=== PATIENT | female | born 1950 | race Caucasian/White ===

== ENCOUNTER 2018-06-07 09:01 | Emergency (ER) | payer BC ==
[2018-06-07 09:25] VITALS: BP 142/82
[2018-06-07] MEDS ORDERED: Ipratropium 0.5MG/2.5ML NEB* 0.5 MG/2.5 ML NEB.SOLN INH ONE (09:39)
[2018-06-07] MEDS ORDERED: Albuterol 2.5 MG/3 ML NEB.SOL* (0.083%) INH ONE (09:39)
--- NOTE | 2018-06-07 10:36 | RAD ---
INDICATION: Cough right lower lobe rales. COMPARISON: Comparison is made with a prior chest x-ray study from May 23, 2016. TECHNIQUE: Dual-energy PA and lateral views of the chest were obtained. FINDINGS: The heart is within normal limits in size. Mediastinal and hilar contours appear within normal limits. The lungs are underinflated. There is a small right basilar infiltrate suggestive of atelectasis. No pleural effusion is seen. IMPRESSION: LOW LUNG VOLUMES, SMALL RIGHT BASILAR INFILTRATE SUGGESTIVE OF ATELECTASIS.
--- NOTE | 2018-06-07 10:41 | UC ---
Respiratory Complaint HPI - HPI Summary HPI Summary: The patient is a 68-year-old female with a three-day history of cough and wheezing. She has had no fever or chills. She has had a history of asthma bronchitis and pneumonia. She has some chest tightness. She has no chest pain or shortness of breath. She is on methotrexate for psoriatic arthritis. - History of Current Complaint Chief Complaint: UCRespiratory Stated Complaint: FATIGUE,COUGH,ST Time Seen by Provider: 06/07/18 09:35 Hx Obtained From: Patient Hx Last Menstrual Period: 1984 Onset/Duration: Gradual Onset, Lasting Days Timing: Constant Severity Initially: Mild Severity Currently: Moderate Pain Intensity: 0 Pain Scale Used: 0-10 Numeric Character: Cough: Nonproductive Aggravating Factors: Exertion, Deep Breaths Alleviating Factors: Nothing Associated Signs And Symptoms: Positive: Wheezing Related History: Similar Episode/Dx as: - bronchitis - Allergies/Home Medications Allergies/Adverse Reactions: Allergies Allergy/AdvReac Type Severity Reaction Status Date / Time Penicillins Allergy Vomiting Verified 06/07/18 09:17 seasonal Allergy Runny Nose Uncoded 10/23/16 10:53 Home Medications: Home Medications Adalimumab (NF) [Humira Pen (NF)] 40 mg SUBCUT WEEKLY 06/07/18 [History Confirmed 06/07/18] Atorvastatin* [Lipitor*] 10 mg PO DAILY 06/07/18 [History Confirmed 06/07/18] Losartan TAB* [Cozaar TAB*] 25 mg PO DAILY 06/07/18 [History Confirmed 06/07/18] Sertraline* [Zoloft*] 25 mg PO DAILY 06/07/18 [History Confirmed 06/07/18] PMH/Surg Hx/FS Hx/Imm Hx Previously Healthy: Yes - proriatic arthritis Endocrine History: Dyslipidemia Cardiovascular History: Hypertension Respiratory History: Asthma, Bronchitis, Pneumonia - Surgical History Surgical History: Yes Surgery Procedure, Year, and Place: bladder implant. patsy. 2 . 3 breast biopsy- benign. tonsilectomy. bladder lifting. hysterectomy. CHOLECYSTECTOMY--2011. trigger finger left 3rd finger. CARDIAC CATH, 2016- [facility]. back surgery - Family History Known Family History: Positive: Unknown, Cardiac Disease, Other - mom: lung cancer, renal cell carcinoma - Social History Alcohol Use: Occasionally Substance Use Type: None Smoking Status (MU): Never Smoked Tobacco - Immunization History Most Recent Influenza Vaccination: 08/2015 Review of Systems Constitutional: Fatigue Skin: Negative Eyes: Negative ENT: Negative Respiratory: Cough Cardiovascular: Negative Gastrointestinal: Negative Genitourinary: Negative Motor: Negative Neurovascular: Negative Musculoskeletal: Negative Neurological: Negative Psychological: Negative Is Patient Immunocompromised?: No All Other Systems Reviewed And Are Negative: Yes Physical Exam Triage Information Reviewed: Yes Appearance: Well-Appearing, No Pain Distress, Well-Nourished Vital Signs: Initial Vital Signs Temp 97.9 F 06/07/18 09:22 Pulse 81 06/07/18 09:22 Resp 17 06/07/18 09:22 BP 142/82 06/07/18 09:22 Pulse Ox 97 06/07/18 09:22 Eye Exam: Normal Eyes: Positive: Conjunctiva Clear ENT: Positive: Normal ENT inspection Respiratory: Positive: No respiratory distress, No accessory muscle use, Wheezing Cardiovascular: Positive: RRR, No Murmur Musculoskeletal: Positive: ROM Intact, No Edema Neurological: Positive: Alert Psychological Exam: Normal Skin Exam: Normal UC Diagnostic Evaluation - Laboratory O2 Sat by Pulse Oximetry: 97 - normal/not hypoxic - Radiology Xray Interpretation: Positive (See Comments) - LOW LUNG VOLUMES, SMALL RIGHT BASILAR INFILTRATE SUGGESTIVE OF ATELECTASIS Respiratory Course/Dx - Differential Dx/Diagnosis Provider Diagnoses: acute bronchitis Discharge - Sign-Out/Discharge Documenting (check all that apply): Discharge/Admit/Transfer - Discharge Plan Condition: Stable Disposition: HOME Prescriptions: Azithromycin TAB* [Zithromax TAB*] 250 mg PO DAILY #6 tab predniSONE [Deltasone 20 MG TAB] 40 mg PO DAILY #10 tab Patient Education Materials: Acute Bronchitis (ED), Atelectasis (ED) Referrals: Karyn Byrnes MD [Primary Care Provider] - 4 Days (if not better) Additional Instructions: use inhaler as directed - Billing Disposition and Condition Condition: STABLE Disposition: Home
[2018-06-07] MEDS ORDERED: Albuterol HFA INHALER* 8 gm MDI INH ONE (10:42)
[2018-06-07] MEDS ORDERED: predniSONE TAB* 20 MG PO ONE (10:43)
== END 2018-06-07 11:06 | disposition home or self-care (01) ==
LOC: UCCORT 09:01
DX: J20.9 Acute bronchitis, unspecified (principal); Z88.1 Allergy status to other antibiotic agents; I10 Essential (primary) hypertension
CPT/HCPCS: 71046; 99213; A9270-GY; G0463; J7512

== ENCOUNTER 2018-06-26 10:43 | Emergency (ER) | payer BC ==
[2018-06-26 11:05] VITALS: BP 126/79
--- NOTE | 2018-06-26 11:19 | UC ---
Complaint Female HPI - HPI Summary HPI Summary: 68 yo female with a 2 day hx of dysuria/urgency and frequency hx of UTIs no hx renal impairment no n/v/d\ no f/c The patient states she has psoriatic arthritis. She takes Bactrim for her UTIs. - History Of Current Complaint Chief Complaint: UCGU Stated Complaint: URINARY COMPLAINT Time Seen by Provider: 06/26/18 11:09 Hx Last Menstrual Period: 1984 Onset/Duration: Gradual Onset, Lasting Days Timing: Intermittent, Lasting Seconds Severity Initially: Moderate Severity Currently: None Pain Intensity: 0 Pain Scale Used: 0-10 Numeric Character: Burning Aggravating Factor(s): Urination Related Hx: Similar Episode/Dx as: - uti - Risk Factors Ectopic Risk Factor: Negative - Allergies/Home Medications Allergies/Adverse Reactions: Allergies Allergy/AdvReac Type Severity Reaction Status Date / Time Penicillins Allergy Vomiting Verified 06/26/18 11:01 seasonal Allergy Runny Nose Uncoded 06/26/18 11:01 Home Medications: Home Medications Nizatidine 150 mg PO BID PRN 06/26/18 [History Confirmed 06/26/18] Phenazopyridine TAB* [Pyridium 100 mg TAB*] 195 mg PO TID PRN 06/26/18 [History Confirmed 06/26/18] PMH/Surg Hx/FS Hx/Imm Hx Previously Healthy: Yes - Psoriatic arthritis Endocrine History: Dyslipidemia - Surgical History Surgical History: Yes Surgery Procedure, Year, and Place: bladder implant. patsy. 2 . 3 breast biopsy- benign. tonsilectomy. bladder lifting. hysterectomy. CHOLECYSTECTOMY--2011. trigger finger left 3rd finger. CARDIAC CATH, 2016- [facility]. back surgery - Family History Known Family History: Positive: Cardiac Disease, Other - mom: lung cancer, renal cell carcinoma - Social History Alcohol Use: Occasionally Substance Use Type: None Smoking Status (MU): Never Smoked Tobacco - Immunization History Most Recent Influenza Vaccination: 08/2015 Review of Systems Constitutional: Negative Skin: Negative Eyes: Negative ENT: Negative Respiratory: Negative Cardiovascular: Negative Gastrointestinal: Negative Genitourinary: Dysuria, Frequency, Urgency Motor: Negative Neurovascular: Negative Musculoskeletal: Negative Neurological: Negative Psychological: Negative Is Patient Immunocompromised?: No All Other Systems Reviewed And Are Negative: Yes Physical Exam Triage Information Reviewed: Yes Appearance: Well-Appearing, No Pain Distress, Well-Nourished Vital Signs: Initial Vital Signs Temp 98.1 F 06/26/18 10:58 Pulse 92 06/26/18 10:58 Resp 16 06/26/18 10:58 BP 126/79 06/26/18 10:58 Pulse Ox 96 06/26/18 10:58 Vital Signs Reviewed: Yes Eyes: Positive: Conjunctiva Clear ENT: Positive: Normal ENT inspection. Negative: Nasal congestion, Nasal drainage, Trismus, Muffled voice, Dental tenderness, Uvula midline Neck: Positive: Supple, Nontender Respiratory: Positive: Lungs clear, Normal breath sounds, No respiratory distress, No accessory muscle use Cardiovascular: Positive: RRR, No Murmur Abdomen Description: Positive: Nontender. Negative: CVA Tenderness (R), CVA Tenderness (L) Neurological: Positive: Alert Psychological Exam: Normal Skin Exam: Normal Complaint Female Dx - Differential Dx/Diagnosis Provider Diagnoses: dysuria. suspect UTI Discharge - Sign-Out/Discharge Documenting (check all that apply): Patient Departure - Discharge Plan Condition: Stable Disposition: HOME Prescriptions: Sulfamethox/Trimethoprim DS* [Bactrim DS 800/160 TAB*] 1 tab PO BID #14 tab Patient Education Materials: Dysuria (ED) Referrals: Karyn Byrnes MD [Primary Care Provider] - 3 Days (if not better) Additional Instructions: I suspect you have a UTI urine culture is pending
== END 2018-06-26 11:28 | disposition home or self-care (01) ==
LOC: UCCORT 10:43
DX: Z88.8 Allergy status to other drugs, medicaments and biological substances (principal); Z88.6 Allergy status to analgesic agent; R30.0 Dysuria
CPT/HCPCS: 87077; 87086; 87186; 99212; G0463

== ENCOUNTER 2019-02-10 09:05 | Emergency (ER) | payer BC ==
[2019-02-10 10:38] VITALS: BP 147/87
--- NOTE | 2019-02-10 11:05 | UC ---
Complaint Female HPI - HPI Summary HPI Summary: The patient has had burning on urination, frequency and urgency over the past 1- 2 days. She denies any fever or chills however she does have some low back pain. She has a history of frequent urinary tract infections the most recent being approximately one month ago. She is allergic to penicillin which results in facial swelling. She states in the past she has taken Bactrim however has always had to return for change to Cipro. Not sexually active and has had a hysterectomy in the past. - History Of Current Complaint Chief Complaint: UCGU Stated Complaint: URINARY COMPLAINT Time Seen by Provider: 02/10/19 10:35 Hx Obtained From: Patient Hx Last Menstrual Period: 1984 ?: No Onset/Duration: Gradual Onset Timing: Constant Severity Initially: Moderate Severity Currently: Moderate Pain Intensity: 3 Character: Burning Aggravating Factor(s): Urination Alleviating Factor(s): Nothing, Other - Patient took Azo without improvement Associated Signs And Symptoms: Positive: Back Pain, Vomiting(# Of Episodes =) - Patient vomited one time yesterday morning but has not vomited since then. - Allergies/Home Medications Allergies/Adverse Reactions: Allergies Allergy/AdvReac Type Severity Reaction Status Date / Time Penicillins Allergy Vomiting Verified 02/10/19 10:35 seasonal Allergy Runny Nose Uncoded 02/10/19 10:35 PMH/Surg Hx/FS Hx/Imm Hx Previously Healthy: Yes GI/ History: Other - History of urinary tract infections for which she sees a urologist. Her most recent was one month ago. She denies any other chronic illnesses. - Surgical History Surgical History: Yes Surgery Procedure, Year, and Place: bladder implant. patsy. 2 . 3 breast biopsy- benign. tonsilectomy. bladder lifting. hysterectomy. trigger finger left 3rd finger. CARDIAC CATH, 2016- [facility]. back surgery - Family History Known Family History: Positive: Unknown, Cardiac Disease, Other - mom: lung cancer, renal cell carcinoma - Social History Occupation: Retired Alcohol Use: Occasionally Substance Use Type: None Smoking Status (MU): Never Smoked Tobacco - Immunization History Most Recent Influenza Vaccination: 08/2015 Review of Systems All Other Systems Reviewed And Are Negative: Yes Constitutional: Positive: Negative Skin: Positive: Negative Eyes: Positive: Negative ENT: Positive: Negative Respiratory: Positive: Negative Cardiovascular: Positive: Negative Gastrointestinal: Positive: Negative Genitourinary: Positive: Dysuria, Frequency, Urgency. Negative: Vaginal/Penile Burning, Vaginal/Penile Itching, Vaginal/Penile Discharge Motor: Positive: Negative Neurovascular: Positive: Negative Musculoskeletal: Positive: Negative Neurological: Positive: Negative Psychological: Positive: Negative Is Patient Immunocompromised?: No Physical Exam Triage Information Reviewed: Yes Appearance: Well-Appearing, No Pain Distress, Well-Nourished Vital Signs: Initial Vital Signs Temp 97.8 F 02/10/19 10:33 Pulse 99 02/10/19 10:33 Resp 18 02/10/19 10:33 BP 147/87 02/10/19 10:33 Pulse Ox 96 02/10/19 10:33 Vital Signs Reviewed: Yes Eye Exam: Normal Neck exam: Normal Respiratory Exam: Normal Cardiovascular Exam: Normal Abdominal Exam: Normal Bowel Sounds: Positive: Present Musculoskeletal Exam: Normal Neurological Exam: Normal Psychological Exam: Normal Skin Exam: Normal Complaint Female Dx - Course Course Of Treatment: Assessment comfortable here. She is going to follow up with her urologist following treatment to make sure the urinary tract infection has cleared. I'm reluctant to give her cephalexin because of her penicillin allergy therefore I'm going to treat her with Cipro since the last time she had a urinary tract infection 1 month ago Bactrim did not work well. - Differential Dx/Diagnosis Differential Diagnosis/HQI/PQRI: Urinary Tract Infection Provider Diagnosis: UTI (urinary tract infection) Discharge - Sign-Out/Discharge Documenting (check all that apply): Patient Departure All imaging exams completed and their final reports reviewed: No Studies - Discharge Plan Condition: Fair Disposition: HOME Prescriptions: Ciprofloxacin TAB* [Cipro 500 MG TAB*] 500 mg PO BID 7 Days #14 tab Phenazopyridine TAB* [Pyridium 100 mg TAB*] 100 mg PO TID 2 Days #6 tab Patient Education Materials: Urinary Tract Infection in Women (DC) Referrals: Karyn Byrnes MD [Primary Care Provider] - Additional Instructions: Increase fluids. Avoid soaps in the genital area, perfume toilet paper. Definite follow-up in the emergency room if you develop any fever, chills, vomiting, increased back pain. Follow-up with your urologist after the medication is completed to make sure the urinary tract infection has cleared - Billing Disposition and Condition Condition: FAIR Disposition: Home
== END 2019-02-10 11:08 | disposition home or self-care (01) ==
LOC: UCCORT 09:05
DX: N39.0 Urinary tract infection, site not specified (principal); Z88.0 Allergy status to penicillin; Z91.09 Other allergy status, other than to drugs and biological substances
CPT/HCPCS: 87077; 87086; 87186; 99212; G0463

== ENCOUNTER 2019-10-29 12:36 | Emergency (ER) | payer BC ==
[2019-10-29 13:47] VITALS: BP 142/74
--- NOTE | 2019-10-29 14:28 | UC ---
UC General HPI - HPI Summary HPI Summary: Patient comes in with a chief complaint of fatigue, nausea and shortness of breath. Patient reports she's been short of breath for a long time and chest x- ray 2 months ago from her doctor and she was told that was normal. Had a history of asthma in the past used albuterol inhalers but she no longer uses those. No chest congestion no fevers no chills. No chest pain no pedal edema. After she ate she gets nauseous. Reports normal bowels with no blood in her stools. She is on nizatidine. Nauseous been the worse over the past one week. She is also been fatigued for at least 3 weeks. Reports she had some blood work with her primary care doctor 2 weeks ago for general checkup and she was told her results were normal. She's also been having a frontal headache. - History of Current Complaint Chief Complaint: UCGeneralIllness Stated Complaint: GENERAL MALAISE Time Seen by Provider: 10/29/19 14:07 Hx Last Menstrual Period: 1984 Pain Intensity: 0 - Allergy/Home Medications Allergies/Adverse Reactions: Allergies Allergy/AdvReac Type Severity Reaction Status Date / Time Penicillins Allergy Vomiting Verified 10/29/19 13:43 seasonal Allergy Runny Nose Uncoded 10/29/19 13:43 Home Medications: Home Medications Cholecalciferol TAB* [Vitamin D TAB*] 1,000 unit PO DAILY 10/29/19 [History Confirmed 10/29/19] Cyanocobalamin TAB* [Vitamin B12 TAB*] 500 mcg PO DAILY 10/29/19 [History Confirmed 10/29/19] PMH/Surg Hx/FS Hx/Imm Hx Previously Healthy: Yes - on methotrexate GI/ History: Gastroesophageal Reflux - Surgical History Surgical History: Yes Surgery Procedure, Year, and Place: bladder implant. patsy. 2 . 3 breast biopsy- benign. tonsilectomy. bladder lifting. hysterectomy. trigger finger left 3rd finger. CARDIAC CATH, 2016- [facility]. back surgery - Family History Known Family History: Positive: Unknown, Cardiac Disease, Other - mom: lung cancer, renal cell carcinoma - Social History Alcohol Use: Occasionally Substance Use Type: None Smoking Status (MU): Never Smoked Tobacco - Immunization History Most Recent Influenza Vaccination: 08/2015 Review of Systems All Other Systems Reviewed And Are Negative: Yes Constitutional: Positive: Fatigue, Other - see hpi Skin: Positive: Negative Eyes: Positive: Negative ENT: Positive: Negative Respiratory: Positive: Shortness Of Breath Cardiovascular: Positive: Negative Gastrointestinal: Positive: Nausea, Other - see hpi Genitourinary: Positive: Negative Motor: Positive: Negative Neurovascular: Positive: Negative Musculoskeletal: Positive: Negative Neurological: Positive: Headache Psychological: Positive: Negative Is Patient Immunocompromised?: Yes - on methotrexate Physical Exam Triage Information Reviewed: Yes Appearance: Well-Appearing, No Pain Distress, Well-Nourished Vital Signs: Initial Vital Signs Temp 99.4 F 10/29/19 13:41 Pulse 72 10/29/19 13:41 Resp 17 10/29/19 13:41 BP 142/74 10/29/19 13:41 Pulse Ox 95 10/29/19 13:41 Vital Signs Reviewed: Yes Eye Exam: Normal Eyes: Positive: Conjunctiva Clear ENT: Positive: Pharynx normal, TMs normal Neck: Positive: Supple Respiratory: Positive: Lungs clear, Normal breath sounds, No respiratory distress Cardiovascular: Positive: RRR Abdomen Description: Positive: Nontender, Soft Bowel Sounds: Positive: Present Musculoskeletal: Positive: Strength Intact, ROM Intact Neurological: Positive: Alert Psychological: Positive: Age Appropriate Behavior Skin Exam: Normal Course/Dx - Course Course Of Treatment: No specific focal complaints with normal vital signs. We'll check CBC CMP TSH. Going to switch to omeprazole and stop the nizatidine at this time. Follow- up with primary care doctor get reevaluated sooner if worse requests concerns. - Diagnoses Provider Diagnosis: Nausea, Fatigue, Shortness of breath Discharge ED - Sign-Out/Discharge Documenting (check all that apply): Patient Departure All imaging exams completed and their final reports reviewed: Yes - Discharge Plan Condition: Stable Disposition: HOME Prescriptions: Omeprazole 20 mg PO BID #30 capsule. Patient Education Materials: Acute Nausea and Vomiting (ED), Fatigue (ED), Shortness of Breath (ED) Referrals: Karyn Byrnes MD [Primary Care Provider] - Additional Instructions: FOLLOW UP WITH YOUR DOCTOR. Stop the nizatidine and replace it with omeprazole. CBC, CMP and TSH lab work is pending. GET REEVALUATED SOONER IF NOT IMPROVING OR GO TO THE EMERGENCY DEPARTMENT IF WORSE OR ANY QUESTIONS OR CONCERNS. - Billing Disposition and Condition Condition: STABLE Disposition: Home
[2019-10-29 18:08] LABS: ABS Basophils 0.1 10^3/ul (0-0.2); ABS Eosinophils 0.2 10^3/ul (0-0.6); ABS Lymphocytes 1.5 10^3/ul (1.0-4.8); ABS Monocytes 0.3 10^3/ul (0-0.8); ABS Neutrophils 2.6 10^3/ul (1.5-7.7); Eosinophil % 3.7 %; Hematocrit 41 % (35-47); Hemoglobin 13.9 g/dL (12.0-16.0); Lymphocyte % 32.7 %; Mean Corpuscular HGB Conc 34 g/dL (31-36); Mean Corpuscular Hemoglobin 33 pg (27-31); Mean Corpuscular Volume 97 fL (80-97); Mean Platelet Volume 9.3 fL (7.4-10.4); Platelet Count 206 10^3/uL (150-450); Red Blood Count 4.26 10^6 /uL (3.70-4.87); Red Cell Distribution Width 14 % (10-15); White Blood Count 4.6 10^3/uL (3.5-10.8)
[2019-10-29 18:15] LABS: Albumin 4.1 g/dL (3.2-5.2); Calcium 9.3 mg/dL (8.6-10.3); Potassium 4.2 mmol/L (3.5-5.0); Total Bilirubin 0.5 mg/dL (0.2-1.0)
[2019-10-29 18:20] LABS: Albumin/Globulin Ratio 1.7 (1-3); BUN/Creatinine Ratio 25.9 (8-20); EGFR African American 125.5 (>60); EGFR Non-African American 103.7 (>60); Globulin 2.4 g/dL (2-4); Total Protein 6.5 g/dL (6.4-8.9)
[2019-10-29 18:31] LABS: TSH (Thyroid Stimulating Horm) 0.71 mcIU/mL (0.34-5.60)
== END 2019-10-29 14:38 | disposition home or self-care (01) ==
LOC: UCCORT 12:36
DX: R06.02 Shortness of breath (principal); R53.83 Other fatigue; R11.0 Nausea; K21.9 Gastro-esophageal reflux disease without esophagitis; Z88.0 Allergy status to penicillin; Z88.1 Allergy status to other antibiotic agents; R51 Headache; Z79.899 Other long term (current) drug therapy
CPT/HCPCS: 36415; 80053; 84443; 85025; 99211; G0463